=== PATIENT | male | born 1985 | race Caucasian/White ===

== ENCOUNTER 2025-04-19 20:52 | Emergency (ER) | payer OTHER ==
[2025-04-19] MEDS ORDERED: Naproxen 500 MG TAB ONE (21:19)
== END 2025-04-19 23:00 ==
LOC: NAV ERS 20:52 → EEVIPCON 20:52 → NAV ERS 23:00
DX: S02.40FA Zygomatic fracture, left side, initial encounter for closed fracture (principal); S00.03XA Contusion of scalp, initial encounter; S00.511A Abrasion of lip, initial encounter; K58.1 Irritable bowel syndrome with constipation; Y04.2XXA Assault by strike against or bumped into by another person, initial encounter
CPT/HCPCS: 70450; 70486